=== PATIENT | male | born 1975 | race Caucasian/White ===

== ENCOUNTER 2019-08-31 01:38 | Emergency (ER) | payer MEDICARE, OTHER ==
[~2019-08-31] VITALS: Ht 185.4 cm; Wt 90.7 kg
--- NOTE | 2019-08-31 02:28 | NUR ---
PT BIB PA C/O AGGRESSIVE BEHAVIOR TO STAFF AT FACILITY. PT PLACED ON MONITOR AND PULSE OX. PT BELONIGNS PLACED IN LOCKER, URINE COLLECTED AND SENT TO LAB. AT BEDSIDE FOR EVAL. WILL CONTINUE TO MONITOR.
--- NOTE | 2019-08-31 02:39 | NUR ---
[facility] CALLED FOR WANDING
[2019-08-31 02:43] LABS: BASOPHILS # (AUTO) 0.1 /CMM (0.0-0.2); BASOPHILS % (AUTO) 0.4 % (0.0-2.0); EOSINOPHILS % (AUTO) 0.5 % (0.0-6.0); HEMATOCRIT 44 % (39-51); HEMOGLOBIN 15.1 g/dL (13.5-17.5); LYMPHOCYTES # (AUTO) 3.4 /CMM (0.8-4.8); LYMPHOCYTES % (AUTO) 17.1 % (20.0-44.0); MEAN CORPUSCULAR HGB CONC 34 g/dl (31.0-36.0); MEAN CORPUSCULAR VOLUME 92 fL (80-96); MONOCYTES % (AUTO) 10.3 % (2.0-12.0); NEUTROPHILS # (AUTO) 14.1 /CMM (1.8-8.9); NEUTROPHILS % (AUTO) 71.7 % (43.0-81.0); PLATELET COUNT (AUTO) 221 /CMM (150-450); RED BLOOD CELL COUNT(AUTO) 4.79 MIL/uL (4.5-6.0); WHITE BLOOD COUNT (AUTO) 19.7 K/uL (4.3-11.0)
[2019-08-31 02:47] LABS: CALCIUM, SERUM 8.9 mg/dL (8.5-10.1); CARBON DIOXIDE 27 mmol/L (21-32); CHLORIDE 102 mmol/L (98-107); CREATININE 1.5 mg/dL (0.6-1.3); GLUCOSE 97 mg/dL (74-106); SODIUM SERUM 140 mmol/L (136-145); UREA NITROGEN, BLOOD 25 mg/dL (7-18)
[2019-08-31 02:54] LABS: ALANINE AMINOTRANSFERASE 36 U/L (12-78); ALBUMIN 3.8 g/dL (3.4-5.0); ALCOHOL, BLOOD < 3 mg/dL (0-0); ALKALINE PHOSPHATASE 49 U/L (46-116); ASPARTATE AMINOTRANSFERASE 41 U/L (15-37); BILIRUBIN,DIRECT 0.1 mg/dL (0.0-0.2); BILIRUBIN,TOTAL 0.2 mg/dL (0.2-1.0); SALICYLATE 3.1 mg/dL (2.8-20.0); TOTAL PROTEIN, SERUM 6.9 g/dL (6.4-8.2)
[2019-08-31 02:55] LABS: ACETAMINOPHEN 0 ug/ml (10-30)
[2019-08-31 03:36] LABS: APPEARANCE,URINE CLEAR (CLEAR); BILIRUBIN,URINE NEGATIVE (NEGATIVE); BLOOD, URINE SMALL Ery/uL (NEGATIVE); COLOR,URINE YELLOW (YELLOW); KETONES,URINE NEGATIVE (NEGATIVE); LEUKOCYTE ESTERASE ,URINE NEGATIVE (NEGATIVE); NITRITE, URINE NEGATIVE (NEGATIVE); PROTEIN,URINE NEGATIVE (NEGATIVE); UGLUCOSE NEGATIVE (NEGATIVE); UROBILINOGEN,URINE 0.2 EU/dL (0.2)
--- NOTE | 2019-08-31 03:51 | NUR ---
KATHERINE CAVAZOS PUBLIC HEALTH POLICY ANALYST PAGED FOR PSYCH EVAL PER ER MD ORDER.
--- NOTE | 2019-08-31 05:11 | NUR ---
KATHERINE CAVAZOS HEAD OF DATA AT BEDSIDE FOR PSYCH EVAL.
--- NOTE | 2019-08-31 05:52 | NUR ---
SPOKE TO [facility], PT ACCEPTED BACK. WILL CALL FOR TRANSPORT.
--- NOTE | 2019-08-31 05:59 | NUR ---
7am ETA. AM [facility]. Called facility.
--- NOTE | 2019-08-31 07:16 | NUR ---
REPORT GIVEN TO MANDY KEITH
[2019-08-31 07:17] VITALS: BP 128/76
== END 2019-08-31 07:21 | disposition home or self-care (01) ==
LOC: ER 01:41
DX: R45.6 Violent behavior (principal); R45.1 Restlessness and agitation; E86.0 Dehydration; F32.9 Major depressive disorder, single episode, unspecified; F41.9 Anxiety disorder, unspecified; F20.9 Schizophrenia, unspecified
CPT/HCPCS: 36415; 80048; 80076; 80305; 80307; 80329; 81001; 85025; 99283; G0480; 81000-TC